=== PATIENT | female | born 1965 | race Caucasian/White ===

== ENCOUNTER 2016-11-07 21:43 | Emergency (ER) | payer OTHER ==
[~2016-11-07] VITALS: Ht 167.6 cm; Wt 83.0 kg
[~2016-11-07 21:43] MED LIST: ALBU17AE16 IH; AMLO-511 PO; FERS325 PO; FLUT1DIS IH; OMEP20 PO; PARO20TA24 PO; [UNRECOGNIZED DRUG - CODE] PO
[2016-11-07] MEDS ORDERED: CHOL200018 PO (21:56)
[2016-11-08] MEDS ORDERED: HYDROCODONE/ACETAMINOPHEN 5-325 MG TABLET PO ONE
[2016-11-08] MEDS ORDERED: AMOX TR/POT CLAV 875 MG/125 MG TABLET PO ONE
[2016-11-08 00:09] VITALS: BP 149/87
== END 2016-11-08 00:12 | disposition home or self-care (01) ==
LOC: EMS 21:51
DX: K08.89 Other specified disorders of teeth and supporting structures (principal); J45.909 Unspecified asthma, uncomplicated
CPT/HCPCS: 99283

== ENCOUNTER 2024-11-21 15:29 | Emergency (ER) | payer OTHER ==
[~2024-11-21] VITALS: Ht 165.1 cm; Wt 72.7 kg
[~2024-11-21 15:29] MED LIST changes: -ALBU17AE16 IH; -AMLO-511 PO; +CHOL200018 PO; +FERR325T27 PO; -FERS325 PO; -FLUT1DIS IH; -OMEP20 PO; -PARO20TA24 PO; -[UNRECOGNIZED DRUG - CODE] PO
[2024-11-21 15:36] VITALS: BP 138/98; PULSE 76; RESP 18; TEMP 98.8; O2SAT 99
[2024-11-21] MEDS ORDERED: CYCL10TA16 PO (16:09)
[2024-11-21] MEDS ORDERED: MOME13HF11 IH (16:09)
[2024-11-21] MEDS ORDERED: IBUP-2070 PO (16:09)
[2024-11-21] MEDS ORDERED: ALBU18HF12 PO (16:09)
[2024-11-21] MEDS ORDERED: BLOO-462 IH (16:09)
[2024-11-21] MEDS ORDERED: PERF3DRO MC (16:09)
[2024-11-21] MEDS ORDERED: CHOL100062 PO (16:09)
[2024-11-21] MEDS ORDERED: SIMV10TA97 PO (16:09)
[2024-11-21] MEDS ORDERED: SEMA1PEN3 SQ (16:09)
[2024-11-21] MEDS: LIDOCAINE 5% TRANSDERMAL PATCH TD ONE (18:06)
[2024-11-21] MEDS ORDERED: LIDO700A15 TP (18:13)
== END 2024-11-21 18:27 | disposition home or self-care (01) ==
LOC: EMS 15:29
DX: M25.511 Pain in right shoulder (principal); J45.909 Unspecified asthma, uncomplicated; Z79.51 Long term (current) use of inhaled steroids; Z79.899 Other long term (current) drug therapy
CPT/HCPCS: 99283